=== PATIENT | male | born 1980 | race Caucasian/White ===

== ENCOUNTER 2017-03-02 14:00 | Inpatient (IN) | payer OTHER ==
[~2017-03-02] VITALS: Ht 175.3 cm; Wt 89.6 kg
[2017-03-02 14:37] LABS: HEMATOCRIT 30.6 % (38.0-50.0); MCH 27.1 PG (29.0-34.0); MCHC 33.3 G/DL (30.0-36.0); MCV 81.4 FL (86-99); RBC DIS.WIDTH-CV 12.8 % (11.8-14.6); RBC DIS.WIDTH-SD 38.1 % (39-53); RED BLOOD COUNT 3.76 M/uL (4.00-5.50); WHITE BLOOD COUNT 19.1 K/uL (4.1-10.2)
[2017-03-02 14:45] LABS: AMYLASE 41 IU/L (1-118); CHLORIDE 98 mEq/L (99-109); POTASSIUM 4.4 mEq/L (3.7-5.4); SODIUM 131 mEq/L (136-147)
[2017-03-02 14:48] LABS: ANION GAP 19 MEQ/L (2-14); GLUCOSE 445 mg/dL (70-99)
[2017-03-02 14:50] LABS: SERUM ETHYL ALCOHOL < 10 mg/dL
[2017-03-02 14:51] LABS: GFR ESTIMATE (CALCULATED) 32 mL/min/
[2017-03-02 14:52] LABS: UREA NITROGEN (BUN) 21 mg/dL (9-23)
[2017-03-02 14:54] LABS: LIPASE 18 U/L (1.0-51.0)
[2017-03-02 15:23] LABS: BASOPHIL COUNT 0.1 K/uL (0-0.1); EOSINOPHIL (%) 0.2 % (0-5); HEMATOLOGY COMMENT 1 SN; IMM.PLATELET FRACTION 5.7 (1-7); IMMATURE GRANULOCYTE (%) 1.1 % (0.0-0.7); IMMATURE GRANULOCYTE COUNT 0.2 K/uL; INSTRUMENT ABS NEUTROPHIL CT 14.5 K/uL; LYMPHOCYTE COUNT 2.9 K/uL (1.0-2.8); MONOCYTE (%) 7.1 % (3-12); MONOCYTE COUNT 1.4 K/uL (0-0.8); NEUTROPHIL (%) 75.9 % (45-76); NEUTROPHIL COUNT 14.5 K/uL (1.8-6.4); PLAT.SUFFICIENCY ADEQUATE; PLATELET COUNT 237 K/uL (156-360)
[2017-03-02 16:51] LABS: BASE EXCESS -8.2 mEq/L (-3 to +3); BICARBONATE 18.4 mEq/L (22-26); CARBOXY HGB 1.5 % (0-5); PCO2 41 mm Hg (35-45); PO2 415 mm Hg (80-100)
[2017-03-02 16:52] LABS: COMMENTS - BLOOD GASES C+; DEVICE VENT; FI02 100 %; MECHANICAL RATE 16 resp/min; MODE ACVC; PEEP 5 CM/H20; SITE FEMORAL; TIDAL VOLUME 535 ML; TOTAL RESP RATE 16 resp/min
[2017-03-02 16:57] LABS: pH 7.26 (7.35-7.45)
[2017-03-02 17:26] LABS: HEMATOCRIT 30.9 % (38.0-50.0); MCH 29.7 PG (29.0-34.0); MCHC 35.6 G/DL (30.0-36.0); MCV 83.5 FL (86-99); RBC DIS.WIDTH-CV 13.4 % (11.8-14.6); RBC DIS.WIDTH-SD 40.5 % (39-53)
[2017-03-02 17:27] LABS: PLAT.SUFFICIENCY ADEQUATE; PLATELET CLUMPS PRESENT - PLATELET COUNT APPEARS ADQ.; PLATELET COUNT UNABLE TO REPORT K/uL (156-360)
[2017-03-02 17:29] LABS: WHITE BLOOD COUNT 33.2 K/uL (4.1-10.2)
[2017-03-02 18:15] VITALS: BP 104/90
[2017-03-02 18:30] VITALS: BP 126/80
[2017-03-02] MEDS ORDERED: ZOLOFT100 MG PO (19:06)
[2017-03-02] MEDS ORDERED: ELAVIL25 MG PO (19:07)
[2017-03-02] MEDS ORDERED: PRILOSEC20 MG PO (19:08)
[2017-03-02] MEDS ORDERED: BACLOFEN20 MG PO (19:10)
[2017-03-02] MEDS ORDERED: LISINOPRIL20 MG PO (19:10)
[2017-03-02] MEDS ORDERED: VENTOLIN HFA18 GM IH (19:12)
[2017-03-02] MEDS ORDERED: MULTI-VITAMIN-1 EACH PO (19:13)
[2017-03-02] MEDS ORDERED: LEVOTHYROXINE100 MCG PO (19:13)
[2017-03-02] MEDS ORDERED: NORVASC10 MG PO (19:14)
[2017-03-02] MEDS ORDERED: VISTARIL50 MG PO (19:16)
[2017-03-02 19:18] VITALS: BP 154/77
[2017-03-02 19:28] LABS: POINT-OF-CARE METER ID UU14174217
[2017-03-02 19:48] LABS: METH RESISTANT S AUREUS PCR NEGATIVE (NEGATIVE); PROBE CHECK PASS; SPECIMEN PROCESSING CONTROL PASS
[2017-03-02 21:08] LABS: ANION GAP 7 MEQ/L (2-14); CHLORIDE 109 MEQ/L (99-109); POTASSIUM 4.7 MEQ/L (3.7-5.4); SAMPLE HEMOLYSIS CHECK 0; SAMPLE ICTERIC CHECK 0; SAMPLE LIPEMIA CHECK 0; SODIUM 136 MEQ/L (136-147); UREA NITROGEN (BUN) 20 mg/dL (9-23)
[2017-03-02 21:23] LABS: GLUCOSE 152 mg/dL (70-99)
[2017-03-02 21:24] LABS: GFR ESTIMATE (CALCULATED) 56 mL/min/
[2017-03-02 22:30] VITALS: BP 156/85
== END 2017-03-02 22:26 | disposition short-term general hospital (02) | DRG 908 ==
LOC: EME 14:00 → TRA 14:00 → ENRESERV 17:22 → 2SOUTH 17:41 → ENRESERV 18:00 → 4WEST 18:01
PROVIDERS: Anesthesiology; Personal Emergency Response Attendant; Surgery
PROC: 30233N1 Transfusion of Nonautologous Red Blood Cells into Peripheral Vein, Percutaneous Approach (ICD-10-PCS; principal; 2017-03-02)
PROC: 06HM33Z Insertion of Infusion Device into Right Femoral Vein, Percutaneous Approach (ICD-10-PCS; principal; 2017-03-02)
PROC: 03QY0ZZ Repair Upper Artery, Open Approach (ICD-10-PCS; 2017-03-02)
PROC: 0HQEXZZ Repair Left Lower Arm Skin, External Approach (ICD-10-PCS; 2017-03-02)
PROC: 03QA0ZZ Repair Left Ulnar Artery, Open Approach (ICD-10-PCS; 2017-03-02)
PROC: 05QY0ZZ Repair Upper Vein, Open Approach (ICD-10-PCS; 2017-03-02)
DX: S65.012A Laceration of ulnar artery at wrist and hand level of left arm, initial encounter (principal); S66.922A Laceration of unspecified muscle, fascia and tendon at wrist and hand level, left hand, initial encounter; S65.912A Laceration of unspecified blood vessel at wrist and hand level of left arm, initial encounter; S61.512A Laceration without foreign body of left wrist, initial encounter; X78.9XXA Intentional self-harm by unspecified sharp object, initial encounter; Y92.149 Unspecified place in prison as the place of occurrence of the external cause
CPT/HCPCS: 36600; 80048; 80048 91; 81003; 82150; 82803; 82948; 83690; 85025; 85027; 86850; 86900; 86901; 86920; 87641; 94002; 99281; 99285; C1751; G0480; J0330; J0690; J2250; J2270; J2405; J2704; J2710; J3010; P9016